=== PATIENT | male | born 1950 | race Two or more races ===

== ENCOUNTER 2023-12-02 18:51 | Emergency (ER) | payer OTHER ==
[~2023-12-02] VITALS: Ht 180.3 cm; Wt 107.5 kg
[2023-12-02] MEDS ORDERED: ADULT LOW DOSE81 M1 (18:58)
[2023-12-02] MEDS ORDERED: ACID REDUCER20 M1 (18:58)
[2023-12-02] MEDS ORDERED: JARDIANCE10 MG (18:58)
[2023-12-02] MEDS ORDERED: CEFTRIAXONE SODIUM 1,000 MG VIAL IM STA (20:19)
[2023-12-02] MEDS ORDERED: GENTAMICIN SULFATE 0.15 MG/DR DROPS 5ML OP STA (20:22)
[2023-12-02 20:37] LABS: HEMATOCRIT 42.5 % (39.0-48.0); HEMOGLOBIN 14.8 g/dL (13-16.00); MEAN CELL VOLUME 90.9 fL (80.0-100.00); MEAN CORPUSCULAR HEMOGLOBIN 31.6 pg (27.00-32.0); MEAN CORPUSCULAR HGB CONC 34.7 g/dl (32.0-36.0); PLATELET COUNT 268 K/uL (150-450); RED BLOOD COUNT 4.68 M/uL (4.00-6.00); RED CELL DISTRIBUTION WIDTH 14.3 % (11.5-14.5)
== END 2023-12-02 22:29 | disposition home or self-care (01) ==
LOC: ER 18:52
PROVIDERS: General Practice
DX: U07.1 COVID-19 (principal); H10.30 Unspecified acute conjunctivitis, unspecified eye; R53.81 Other malaise; Z88.1 Allergy status to other antibiotic agents
CPT/HCPCS: 36415; 71046; 96372; 99283; J0696